=== PATIENT | male | born 1955 | race Caucasian/White ===

== ENCOUNTER 2021-12-12 16:32 | Outpatient (REF) | payer MEDICARE, MEDICAID, SELFPAY ==
[2021-12-12 17:11] LABS: Microalb ug/mg Crea 166.7 ug/mg Cr
== END 2021-12-12 16:33 | disposition home or self-care (01) ==
LOC: NCHCN 16:32
PROVIDERS: Visit Provider Nurse Practitioner Family
DX: E11.65 Type 2 diabetes mellitus with hyperglycemia (principal)
CPT/HCPCS: 82043; 82570

== ENCOUNTER 2022-08-21 15:34 | Outpatient (REF) | payer MEDICARE, MEDICAID, SELFPAY ==
[2022-08-21 16:15] LABS: Abs Immature Grans 0.03 10^3/uL (0.0-0.06); Absolute Basophil Count 0.04 10^3/uL (0.0-0.2); Absolute Eosinophil Count 0.14 10^3/uL (0.0-0.7); Absolute Monocyte Count 0.33 10^3/uL (0.1-0.8); Basophils % 0.4; Eosinophils % 1.5; HCT 50.1 % (40.0-50.0); HGB 15.8 g/dL (13.5-17.5); Immature Grans % 0.3; Lymphocytes % 10.4; MCH 29.6 pg (27.0-33.0); MCHC 31.5 % (32.0-36.0); MCV 94 fL (80-95); MPV 9.6 fL (8.0-11.0); Monocytes % 3.4; Platelet Count 307 10^3/uL (130-400); RBC 5.34 10^6/uL (4.36-5.78); RDW 14.9 % (11.8-14.1); RDW-SD 51.5 fL; WBC 9.64 10^3/uL (4.4-10.8)
[2022-08-21 16:19] LABS: ALT 37 U/L (16-63); AST 33 U/L (15-37); Albumin 3.8 g/dL (3.4-5.0); Alkaline Phosphatase 114 U/L (46-116); Anion Gap 13.2 mmol/L (3-11); BUN 40 mg/dL (7-18); Bilirubin, Total 0.5 mg/dL (0.2-1.0); CO2 18.8 mmol/L (21.0-32.0); CREATININE 1.5 mg/dL (0.70-1.30); Calcium 9.4 mg/dL (8.5-10.1); Calculated LDL 61 mg/dL (<100); Chloride 104 mmol/L (98-107); Cholesterol 112 mg/dL (<200); Estimated GFR 50.71 (mL/min/1.73m2); Glucose 123 mg/dL (74-106); HDL Cholesterol 28 mg/dL (40-60); Potassium 4.9 mmol/L (3.5-5.1); Sodium 136 mmol/L (136-145); Total Protein 8.3 g/dL (6.4-8.2); Triglyceride 118 mg/dL (<150)
[2022-08-21 16:25] LABS: Hemoglobin A1C 6.4 % (<5.7)
[2022-08-21 16:27] LABS: TSH (W/Ref FT4) 1.23 uIU/mL (0.36-3.74)
[2022-08-24 10:15] LABS: PSA, Screening 0.3 ng/mL (<=4.5)
== END 2022-08-21 15:35 | disposition home or self-care (01) ==
LOC: NCHCN 15:34
PROVIDERS: Family Medicine; Visit Provider Nurse Practitioner Family
DX: E11.9 Type 2 diabetes mellitus without complications (principal); E78.00 Pure hypercholesterolemia, unspecified; I10 Essential (primary) hypertension; E66.9 Obesity, unspecified; Z12.5 Encounter for screening for malignant neoplasm of prostate; R19.7 Diarrhea, unspecified; R11.10 Vomiting, unspecified
CPT/HCPCS: 80053; 80061; 84153; 83036; 84443; 85025

== ENCOUNTER 2023-05-11 15:26 | Outpatient (REF) | payer MEDICARE, MEDICAID, SELFPAY ==
--- OUTSIDE RECORDS SUMMARY | 2023-05-11 15:31 | XMS_ITS | CCD ---
Author Name Unknown Address [address] [place] [address] [phone] Organization Unknown Address [address] [place] [address] [id number] Care Team Providers Care Fire Prevention Specialist Name Role Phone SHAD BALDERAS Attending Physician [phone] Vital Signs Unknown or Not Available. Allergies Allergy Code Allergy Type Reaction Status MORPHINE 7052 Drug allergy Vomiting Active PIROXICAM 8356 Drug allergy SOB Active Procedures Unknown or Not Available. History of Immunizations Unknown or Not Available. Problems Problem Code Start Date Resolved Date Status ABNORMAL COAGULATION PROFILE 804507289 Active TYPE II DIABETES MELLITUS WI TH NEUROLOGICAL MANIFESTATIONS 480988813 Active Results Unknown or Not Available. Active Medications Unknown or Not Available. Medications Administered During Visit Unknown or Not Available. Encounters Encounter Diagnosis Diagnosis Code Start Date Sciatica, right side M5431 06/10/2022 Social History Smoking Status Code Start Date End Date Current every day smoker [id number] 05/03/1970 Patient Decision Aids Unknown or Not Available. Discharge Instructions You were admitted to [facility] on 06/10/2022 08:32 with a principal diagnosis of Sciatica, right side You were discharged from [facility] on 09/08/2022 13:56 Should you have any questions prior to discharge, please contact a member of your healthcare team. If you have left the hospital and have any questions, please contact your primary care physician. Chief Complaint and Reason For Visit Unknown or Not Available. Function Status Unknown or Not Available. Plan of Care Unknown or Not Available. Referral/Transition of Care Unknown or Not Available.
--- OUTSIDE RECORDS SUMMARY | 2023-05-11 15:31 | XMS_ITS | CCD ---
Author Name Unknown Address [address] [place] [address] [phone] Organization Unknown Address [address] [place] [address] [phone] Care Team Providers Care Gift Officer Name Role Phone SHAD BALDERAS Attending Physician [phone] Vital Signs Unknown or Not Available. Allergies Allergy Code Allergy Type Reaction Status MORPHINE 7052 Drug allergy Vomiting Active PIROXICAM 8356 Drug allergy SOB Active Procedures Unknown or Not Available. History of Immunizations Unknown or Not Available. Problems Problem Code Start Date Resolved Date Status ABNORMAL COAGULATION PROFILE 339619390 Active TYPE II DIABETES MELLITUS WI TH NEUROLOGICAL MANIFESTATIONS 410377372 Active Results Unknown or Not Available. Active Medications Unknown or Not Available. Medications Administered During Visit Unknown or Not Available. 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 Discharge Instructions You were admitted to [facility] on 07/20/2022 07:32 with a principal diagnosis of Intervertebral disc disorders with radiculopathy, lumbar region You were discharged from [facility] on 07/20/2022 07:32 Should you have any questions prior to discharge, please contact a member of your healthcare team. If you have left the hospital and have any questions, please contact your primary care physician. Chief Complaint and Reason For Visit Chief Complaint Date of Onset SCIATICA Function Status Unknown or Not Available. Plan of Care Unknown or Not Available. Referral/Transition of Care Unknown or Not Available.
--- OUTSIDE RECORDS SUMMARY | 2023-05-11 15:31 | XMS_ITS | CCD ---
Author Name Unknown Address [address] [place] [address] [phone] Organization Unknown Address [address] [place] [address] [phone] Care Team Providers Care Watch Guard Gate Name Role Phone SHAD BALDERAS Attending Physician [phone] Vital Signs Unknown or Not Available. Allergies Allergy Code Allergy Type Reaction Status MORPHINE 7052 Drug allergy Vomiting Active PIROXICAM 8356 Drug allergy SOB Active Procedures Unknown or Not Available. History of Immunizations Unknown or Not Available. Problems Problem Code Start Date Resolved Date Status ABNORMAL COAGULATION PROFILE 903064256 Active TYPE II DIABETES MELLITUS WI TH NEUROLOGICAL MANIFESTATIONS 145902119 Active Results Unknown or Not Available. Active Medications Unknown or Not Available. Medications Administered During Visit Unknown or Not Available. Encounters Encounter Diagnosis Diagnosis Code Start Date Encounter for screening for malignant neoplasm of respiratory organs Z122 04/28/2022 Social History Smoking Status Code Start Date End Date Current every day smoker [id number] 05/03/1970 Patient Decision Aids Unknown or Not Available. Discharge Instructions You were admitted to [facility] on 04/28/2022 14:09 with a principal diagnosis of Encounter for screening for malignant neoplasm of respiratory organs You were discharged from [facility] on 04/28/2022 14:09 Should you have any questions prior to discharge, please contact a member of your healthcare team. If you have left the hospital and have any questions, please contact your primary care physician. Chief Complaint and Reason For Visit Chief Complaint Date of Onset LDCT Function Status Unknown or Not Available. Plan of Care Unknown or Not Available. Referral/Transition of Care Unknown or Not Available.
--- OUTSIDE RECORDS SUMMARY | 2023-05-11 15:32 | XMS_ITS | CCD ---
Author Name Unknown Address [address], [place] [phone] Organization Unknown Address [address] [place] [address] [phone] Care Team Providers Care Meat Packer Name Role Phone FILIPE GRAHAM Attending Physician [phone] FILIPE GRAHAM Rounding (Secondary) Physician [phone] Vital Signs Unknown or Not Available. Allergies Allergy Code Allergy Type Reaction Status MORPHINE 7052 Drug allergy Vomiting Active PIROXICAM 8356 Drug allergy SOB Active Procedures Unknown or Not Available. History of Immunizations Unknown or Not Available. Problems Problem Code Start Date Resolved Date Status ABNORMAL COAGULATION PROFILE 051261189 Active TYPE II DIABETES MELLITUS WI TH NEUROLOGICAL MANIFESTATIONS 823624327 Active Results Unknown or Not Available. Active Medications Unknown or Not Available. Medications Administered During Visit Unknown or Not Available. Encounters Encounter Diagnosis Diagnosis Code Start Date Refusal of treatment by patient [id number] 03/26/2021 Social History Smoking Status Code Start Date End Date Current every day smoker [id number] 05/03/1970 Patient Decision Aids Unknown or Not Available. Discharge Instructions You were admitted to [facility] on 03/26/2021 10:53 with a principal diagnosis of Procedure and treatment not carried out because of patient's decision for other reasons You were discharged from [facility] on 03/26/2021 13:53 Should you have any questions prior to [...]
--- OUTSIDE RECORDS SUMMARY | 2023-05-11 15:32 | XMS_ITS | CCD ---
Author Name Unknown Address [address] [place] [address] [phone] Organization Unknown Address [address] [place] [address] [phone] Care Team Providers Care Sample Preparation Supervisor Name Role Phone SHAD BALDERAS Attending Physician [phone] Vital Signs Unknown or Not Available. Allergies Allergy Code Allergy Type Reaction Status MORPHINE 7052 Drug allergy Vomiting Active PIROXICAM 8356 Drug allergy SOB Active Procedures Unknown or Not Available. History of Immunizations Unknown or Not Available. Problems Problem Code Start Date Resolved Date Status ABNORMAL COAGULATION PROFILE 560452020 Active TYPE II DIABETES MELLITUS WI TH NEUROLOGICAL MANIFESTATIONS 315866631 Active Results Unknown or Not Available. Active Medications Unknown or Not Available. Medications Administered During Visit Unknown or Not Available. Encounters Encounter Diagnosis Diagnosis Code Start Date Sciatica, right side M5431 02/13/2022 Social History Smoking Status Code Start Date End Date Current every day smoker 991253021 05/03/1970 Patient Decision Aids Unknown or Not Available. Discharge Instructions You were admitted to [facility] on 02/13/2022 09:00 with a principal diagnosis of Sciatica, right side You were discharged from [facility] on 03/09/2022 10:26 Should you have any questions prior to [...]
[2023-05-11 16:08] LABS: HGB 13.4 g/dL (13.5-17.5); MCHC 31.9 % (32.0-36.0); MCV 97 fL (80-95); MPV 9.4 fL (8.0-11.0); Platelet Count 275 10^3/uL (130-400); RBC 4.32 10^6/uL (4.36-5.78); RDW 14.2 % (11.8-14.1); RDW-SD 51.2 fL
[2023-05-11 16:29] LABS: Hemoglobin A1C 7.1 % (<5.7)
[2023-05-11 16:42] LABS: ALT 15 U/L (16-63); AST 13 U/L (15-37); Albumin 3.2 g/dL (3.4-5.0); Alkaline Phosphatase 91 U/L (46-116); Anion Gap 4.9 mmol/L (3-11); BUN 14 mg/dL (7-18); Bilirubin, Total 0.8 mg/dL (0.2-1.0); CO2 31.1 mmol/L (21.0-32.0); CREATININE 1.5 mg/dL (0.70-1.30); Calcium 9.3 mg/dL (8.5-10.1); Calculated LDL 31 mg/dL (<100); Chloride 104 mmol/L (98-107); Cholesterol 81 mg/dL (<200); Glucose 96 mg/dL (74-106); HDL Cholesterol 29 mg/dL (40-60); Magnesium 1.8 mg/dL (1.8-2.4); Sodium 140 mmol/L (136-145); Total Protein 7.4 g/dL (6.4-8.2); Triglyceride 106 mg/dL (<150)
[2023-05-11 21:50] LABS: COMMENT (LAB VIEW ONLY) 66.02 mg/dL; Microalb ug/mg Crea 32.4 ug/mg Cr
== END 2023-05-11 15:27 | disposition home or self-care (01) ==
LOC: NCHCN 15:26
PROVIDERS: PCP Nurse Practitioner Family; Visit Provider Nurse Practitioner Family
DX: E11.9 Type 2 diabetes mellitus without complications (principal)
CPT/HCPCS: 80053; 80061; 85027; 82043; 82570; 83036; 83735